=== PATIENT | male | born 1955 | race Caucasian/White ===

== ENCOUNTER 2017-06-26 19:28 | Inpatient (IN) | payer OTHER ==
[~2017-06-26] VITALS: Ht 175.3 cm; Wt 86.2 kg
[2017-06-26 20:09] LABS: Basophils # (auto) 0 uL; Basophils % (auto) 0.5 % (0.0-2.0); CONDITION Y; Eosinophils # (auto) 0.2 uL; Eosinophils % (auto) 2.2 % (0.0-7.0); Hematocrit 36.5 % (41.0-53.0); Hemoglobin 12.5 g/dL (13.5-17.5); Lymphocytes % (auto) 28.9 % (10.0-50.0); Mean Corpuscular Hemoglobin 32.6 pg (28.0-32.0); Mean Corpuscular Hgb Conc. 34.3 g/dL (32.0-36.0); Mean Corpuscular Volume 95.2 fL (80.0-100.0); Mean Platelet Volume 8.6 fL (7.4-10.4); Monocytes # (auto) 0.7 uL; Monocytes % (auto) 9.7 % (0.0-12.0); Neutrophils # (auto) 4.1 uL; Neutrophils % (auto) 58.7 % (37.0-80.0); Platelet Count (auto) 212 10^3/uL (140-450); Red Cell Distribution Width 14.2 % (11.6-16.0); White Blood Cell 6.9 10^3/uL (4.4-10.8)
[2017-06-26] MEDS ORDERED: SODIUM CHLORIDE 0.9% 1,000 ML IVB ONE (20:20)
[2017-06-26 20:45] LABS: Albumin 3.1 g/dL (3.4-5.0); Bilirubin, Total 0.3 mg/dL (0.2-1.0); Calcium 7.7 mg/dL (8.5-10.1); Magnesium 2.2 mg/dL (1.6-2.6); Potassium 3.5 mmol/L (3.5-5.1); Total Protein 5.9 g/dL (6.4-8.2)
[2017-06-26] MEDS ORDERED: SODIUM CHLORIDE 0.9% 500 ML IV ONE (21:00)
[2017-06-26 21:10] LABS: Urine Bilirubin Negative (Negative); Urine Blood Negative /uL (Negative); Urine Color Yellow (Yellow); Urine Glucose Normal (Normal); Urine Hyaline Cast MANY /lpf (0 - 2); Urine Ketone TRACE (Negative); Urine Mucus FEW (None Seen); Urine Nitrite Negative (Negative); Urine RBC <1 /hpf (0 - 3); Urine Urobilinogen Normal (Negative)
[2017-06-26 21:36] LABS: B-Type Natriuretic Peptide 170.99 pg/mL (0-100)
[2017-06-26 21:52] LABS: Temperature: 23.3 C (20.0-25.0)
[2017-06-26] MEDS ORDERED: LACTULOSE 20Gm/30ML SOLN PO PRN (22:30)
[2017-06-26] MEDS ORDERED: NITROGLYCERIN 0.4 MG SL TAB SL PRN (22:30)
[2017-06-26] MEDS ORDERED: MORPHINE SULF INJ 2 MG/ML SYRINGE 1ML IV PRN (22:30)
[2017-06-26] MEDS ORDERED: POTASSIUM CHL 20 Meq TABLET PO ONE (22:45)
[2017-06-26] MEDS ORDERED: FUROSEMIDE 20 MG/2 ML VIAL IV ONE (22:45)
[2017-06-26 23:11] LABS: Cholesterol 146 mg/dL (< 200); HDL Cholesterol 45 mg/dL (40-59); LDL Cholesterol 82 mg/dL (< 100); Triglycerides 342 mg/dL (< 150)
[2017-06-26] MEDS ORDERED: ACETAMINOPHEN 650 mg PER 20 mL UD PO PRN (23:15)
[2017-06-26] MEDS ORDERED: ACETAMINOPHEN 325 MG TAB PO ONE (23:18)
[2017-06-27] MEDS ORDERED: METO10TA3 PO (00:19)
[2017-06-27] MEDS ORDERED: ASCO500T11 PO (00:19)
[2017-06-27] MEDS ORDERED: FURO40TA4 PO (00:19)
[2017-06-27] MEDS ORDERED: MULT-228 PO (00:19)
[2017-06-27] MEDS ORDERED: ATOR20TA50 PO (00:19)
[2017-06-27] MEDS ORDERED: LOSA100T27 PO (00:19)
[2017-06-27] MEDS ORDERED: ASP81EC PO (00:19)
[2017-06-27] MEDS ORDERED: CARV6.2551 PO (00:19)
[2017-06-27 05:00] VITALS: BP 107/52
[2017-06-27 06:07] LABS: Basophils # (auto) 0.1 uL; Basophils % (auto) 0.8 % (0.0-2.0); CONDITION Y; Eosinophils # (auto) 0.2 uL; Eosinophils % (auto) 2.5 % (0.0-7.0); Hematocrit 38.4 % (41.0-53.0); Hemoglobin 12.8 g/dL (13.5-17.5); Lymphocytes # (auto) 2.4 uL; Lymphocytes % (auto) 34.5 % (10.0-50.0); Mean Corpuscular Hemoglobin 31.9 pg (28.0-32.0); Mean Corpuscular Hgb Conc. 33.2 g/dL (32.0-36.0); Mean Platelet Volume 9.2 fL (7.4-10.4); Monocytes # (auto) 0.7 uL; Monocytes % (auto) 9.6 % (0.0-12.0); Neutrophils # (auto) 3.7 uL; Neutrophils % (auto) 52.6 % (37.0-80.0); Platelet Count (auto) 207 10^3/uL (140-450); Red Cell Distribution Width 14.3 % (11.6-16.0)
[2017-06-27 06:44] LABS: BUN/Creatinine Ratio 25.5; Calcium 7.9 mg/dL (8.5-10.1); Potassium 4.2 mmol/L (3.5-5.1)
[2017-06-27 09:00] VITALS: BP 120/74
[2017-06-27] MEDS ORDERED: LOSARTAN POTASSIUM 50 MG TAB PO SCH (10:00)
[2017-06-27] MEDS ORDERED: ASPirin-EC 81 mg tab PO SCH (10:00)
[2017-06-27] MEDS ORDERED: FUROSEMIDE 20 MG TAB PO SCH (10:00)
[2017-06-27] MEDS ORDERED: METOPROLOL TARTRATE 25 MG TAB PO SCH (10:00)
[2017-06-27] MEDS ORDERED: CARVEDILOL 3.125 MG TAB PO SCH (10:00)
[2017-06-27 13:00] VITALS: BP 96/65
[2017-06-27] MEDS ORDERED: HYDROcodone-ACET 5/325MG TAB PO ONE (13:45)
[2017-06-27 14:05] VITALS: BP 96/65
[2017-06-27] MEDS ORDERED: ATORVASTATIN 20 MG TAB PO SCH (22:00)
== END 2017-06-27 16:15 | disposition home health service (06) | DRG 313 ==
LOC: EDBD 19:28 → ER 19:39 → TELE 19:40 → TELE-WESTW 23:31
PROVIDERS: ADMIT Nurse Practitioner Family; ATTEND Internal Medicine
DX: R07.9 Chest pain, unspecified (principal); I25.2 Old myocardial infarction; I42.9 Cardiomyopathy, unspecified; I50.22 Chronic systolic (congestive) heart failure; I11.0 Hypertensive heart disease with heart failure; D64.9 Anemia, unspecified; E78.00 Pure hypercholesterolemia, unspecified; E78.5 Hyperlipidemia, unspecified; I25.10 Atherosclerotic heart disease of native coronary artery without angina pectoris; Z82.49 Family history of ischemic heart disease and other diseases of the circulatory system; Z87.891 Personal history of nicotine dependence; Z95.1 Presence of aortocoronary bypass graft; Z95.810 Presence of automatic (implantable) cardiac defibrillator; Z80.9 Family history of malignant neoplasm, unspecified
CPT/HCPCS: 36415; 71010; 80048; 80053; 80061; 81001; 82550; 83735; 83880; 84484; 85025; 85652; 86141; 93005; 93306; 96360; 96361; 99291

== ENCOUNTER → 2018-03-01 | Outpatient (CLI) | payer OTHER, MEDICAID ==
[~2018-03-01] VITALS: Ht 175.3 cm; Wt 86.2 kg
[~2018-03-01] MED LIST: ADENOSINE 72 MG in GIVE UN-DILUTED 0 ML IV ONE; ADENOSINE 90 MG/30 ML INJ IV ONE; ASCO500T11 PO; ASP81EC PO; ATOR20TA50 PO; CARV6.2551 PO; FURO40TA4 PO; LOSA100T27 PO; METO10TA3 PO; MULT-228 PO
== END | disposition home or self-care (01) ==
LOC: Rad HDHVI 13:09
PROVIDERS: ATTEND Internal Medicine Cardiovascular Disease
DX: I25.5 Ischemic cardiomyopathy (principal); I11.0 Hypertensive heart disease with heart failure; I50.23 Acute on chronic systolic (congestive) heart failure; I25.2 Old myocardial infarction; E78.5 Hyperlipidemia, unspecified; E78.00 Pure hypercholesterolemia, unspecified; Z87.891 Personal history of nicotine dependence
CPT/HCPCS: 78452; 93005; 96374; 96375; A9500; J0153

== ENCOUNTER → 2018-03-11 | Outpatient (CLI) | payer OTHER ==
[~2018-03-11] MED LIST changes: -ADENOSINE 72 MG in GIVE UN-DILUTED 0 ML IV ONE; -ADENOSINE 90 MG/30 ML INJ IV ONE
[2018-03-11 09:30] VITALS: BP 124/64
[2018-03-11 10:30] VITALS: BP 106/74
[2018-03-11 12:27] LABS: Basophils # (auto) 0 uL; Basophils % (auto) 0.5 % (0.0-2.0); Eosinophils # (auto) 0.2 uL; Eosinophils % (auto) 2.7 % (0.0-7.0); Hematocrit 40.4 % (41.0-53.0); Hemoglobin 13.5 g/dL (13.5-17.5); Lymphocytes # (auto) 1.8 uL; Lymphocytes % (auto) 24.2 % (10.0-50.0); Mean Corpuscular Hemoglobin 32.1 pg (28.0-32.0); Mean Corpuscular Hgb Conc. 33.3 g/dL (32.0-36.0); Mean Corpuscular Volume 96.2 fL (80.0-100.0); Monocytes # (auto) 0.5 uL; Monocytes % (auto) 6.2 % (0.0-12.0); Neutrophils % (auto) 66.4 % (37.0-80.0); Nucleated Red Blood Cells % 0.1 %; Platelet Count (auto) 213 10^3/uL (140-450); White Blood Cell 7.5 10^3/uL (4.4-10.8)
[2018-03-11 12:36] LABS: Albumin 3.7 g/dL (3.4-5.0); BUN/Creatinine Ratio 31.6; Bilirubin, Total 0.6 mg/dL (0.2-1.0); Calcium 8.8 mg/dL (8.5-10.1); Total Protein 7.4 g/dL (6.4-8.2)
[2018-03-11 12:46] LABS: Hepatitis B Surface Antibody Negative
[2018-03-11 13:23] LABS: Hepatitis A Total Antibody Negative
[2018-03-11 13:44] LABS: Hepatitis B Core Total AB Negative
[2018-03-11 13:45] LABS: Hepatitis B Surface Antigen Negative (Negative); Hepatitis C Antibody Negative (Negative)
== END | disposition home or self-care (01) ==
LOC: CHF HDHVI 09:06
PROVIDERS: ATTEND Internal Medicine Cardiovascular Disease
DX: I10 Essential (primary) hypertension (principal); I50.23 Acute on chronic systolic (congestive) heart failure; D64.9 Anemia, unspecified; E78.5 Hyperlipidemia, unspecified; Z94.1 Heart transplant status; Z87.891 Personal history of nicotine dependence
CPT/HCPCS: 36415; 80053; 82306; 82607; 83880; 85025; 86703; 86704; 86706; 86708; 86803; 86850; 86900; 86901; 87340; 93005; 93701; 94618; G0463

== ENCOUNTER → 2018-03-12 | Outpatient (CLI) | payer OTHER ==
[2018-03-12 18:22] LABS: Protein, Urine 8.6 mg/dL (0.0-11.9)
[2018-03-12 18:24] LABS: 24 Hr. Total Protein, Urine 163.4 mg/24 Hr (<149.1)
== END | disposition home or self-care (01) ==
LOC: LAB 13:08
PROVIDERS: ATTEND Internal Medicine Cardiovascular Disease
DX: I11.0 Hypertensive heart disease with heart failure (principal); I50.23 Acute on chronic systolic (congestive) heart failure; E78.5 Hyperlipidemia, unspecified; E78.00 Pure hypercholesterolemia, unspecified; Z94.1 Heart transplant status; Z87.891 Personal history of nicotine dependence
CPT/HCPCS: 84156

== ENCOUNTER → 2018-03-25 | Outpatient (CLI) | payer OTHER ==
[~2018-03-25] MED LIST changes: +CYANOCOBALAMIN (B-12) 1000 MCG/1 ML VIAL IM ONE; +CYANOCOBALAMIN (B-12) 1000 MCG/1 ML VIAL ONE
[2018-03-25 09:15] VITALS: BP 88/64
[2018-03-25 10:15] VITALS: BP 115/86
[2018-03-25 12:11] LABS: BUN/Creatinine Ratio 42.3; Calcium 9.6 mg/dL (8.5-10.1); Magnesium 3.1 mg/dL (1.6-2.6); Potassium 4.1 mmol/L (3.5-5.1)
== END | disposition home or self-care (01) ==
LOC: CHF HDHVI 09:22
PROVIDERS: ATTEND Internal Medicine Cardiovascular Disease
DX: I11.0 Hypertensive heart disease with heart failure (principal); I50.23 Acute on chronic systolic (congestive) heart failure; I27.21 Secondary pulmonary arterial hypertension; R53.83 Other fatigue; I25.10 Atherosclerotic heart disease of native coronary artery without angina pectoris; I25.2 Old myocardial infarction; Z87.891 Personal history of nicotine dependence; Z79.899 Other long term (current) drug therapy
CPT/HCPCS: 36415; 80048; 83735; 83880; 93701; 96372; G0463; J3420

== ENCOUNTER → 2018-03-30 | Outpatient (CLI) | payer OTHER ==
[~2018-03-30] MED LIST changes: -CYANOCOBALAMIN (B-12) 1000 MCG/1 ML VIAL IM ONE; -CYANOCOBALAMIN (B-12) 1000 MCG/1 ML VIAL ONE
[2018-03-30 08:25] VITALS: BP 91/62
[2018-03-30 09:30] VITALS: BP 98/68
[2018-03-30 12:04] LABS: Basophils # (auto) 0.1 uL; Basophils % (auto) 0.7 % (0.0-2.0); Eosinophils # (auto) 0.2 uL; Eosinophils % (auto) 2.6 % (0.0-7.0); Hematocrit 39.7 % (41.0-53.0); Hemoglobin 13.3 g/dL (13.5-17.5); Lymphocytes # (auto) 1.6 uL; Lymphocytes % (auto) 22.4 % (10.0-50.0); Mean Corpuscular Hemoglobin 31.8 pg (28.0-32.0); Mean Corpuscular Hgb Conc. 33.5 g/dL (32.0-36.0); Mean Corpuscular Volume 95.1 fL (80.0-100.0); Monocytes # (auto) 0.5 uL; Monocytes % (auto) 6.6 % (0.0-12.0); Neutrophils # (auto) 4.8 uL; Neutrophils % (auto) 67.7 % (37.0-80.0); Nucleated Red Blood Cells % 0.2 %; Platelet Count (auto) 203 10^3/uL (140-450); Red Blood Cells 4.17 10^6/uL (4.5-5.90); Red Cell Distribution Width 13.1 % (11.8-14.3)
[2018-03-30 12:16] LABS: INR 0.99 (0.9-1.15); Partial Thromboplastin Time 30.6 sec (23.78-33.04); Prothrombin Time 10.6 sec (9.27-12.13)
[2018-03-30 12:25] LABS: BUN/Creatinine Ratio 31.5; Calcium 8.6 mg/dL (8.5-10.1)
== END | disposition home or self-care (01) ==
LOC: Rad HDHVI 08:03
PROVIDERS: ATTEND Internal Medicine Cardiovascular Disease
DX: Z01.818 Encounter for other preprocedural examination (principal); I25.10 Atherosclerotic heart disease of native coronary artery without angina pectoris; I11.0 Hypertensive heart disease with heart failure; E78.5 Hyperlipidemia, unspecified; E78.00 Pure hypercholesterolemia, unspecified; I50.23 Acute on chronic systolic (congestive) heart failure; Z79.899 Other long term (current) drug therapy
CPT/HCPCS: 36415; 71046; 80048; 85025; 85610; 85730; 93005; G0463

== ENCOUNTER 2018-04-01 10:16 | Inpatient (IN) | payer OTHER ==
[~2018-04-01] VITALS: Ht 175.3 cm; Wt 92.4 kg
[2018-04-01] MEDS ORDERED: IOHEXOL 350 MG/ML 100ML IJ ONE ×2 (10:59→13:19)
[2018-04-01] MEDS ORDERED: LIDOCAINE 2%HCL (LOCAL ANESTH.) INJ 20ML MDV ONE (10:59)
[2018-04-01] MEDS ORDERED: ceFAZolin 1GM/100ML 50 ML IV ONE (12:00)
[2018-04-01] MEDS ORDERED: fentaNYL CITRATE 100 MCG/2 ML VL ONE (13:11)
[2018-04-01] MEDS ORDERED: VANCOMYCIN HCL 1000 MG VL ONE (13:11)
[2018-04-01] MEDS ORDERED: MIDAZOLAM HCL 1MG/1ML-2 ML VIAL ONE (13:11)
[2018-04-01] MEDS ORDERED: diphenhdrAMINE HCL 50 MG/1 ML VL ONE (13:39)
[2018-04-01] MEDS ORDERED: VANCOMYCIN 1GM/250ML 250 ML IV ONE (13:44)
[2018-04-01] MEDS ORDERED: ceFAZolin 1GM VL ONE (14:02)
[2018-04-01] MEDS ORDERED: MORPHINE SULF INJ 2 MG/ML SYRINGE 1ML IV PRN (15:00)
[2018-04-01] MEDS ORDERED: LORazepam 0.5 MG TAB PO PRN (15:00)
[2018-04-01] MEDS ORDERED: NITROGLYCERIN 0.4 MG SL TAB SL PRN (15:00)
[2018-04-01] MEDS ORDERED: ONDANSETRON HCL 4 MG/2 ML VIAL IV PRN (15:00)
[2018-04-01] MEDS ORDERED: ACETAMINOPHEN 325 MG TAB PO PRN (15:00)
[2018-04-01 17:00] VITALS: BP 133/94
[2018-04-01] MEDS: HYDROcodone-ACET 10/325MG TAB PO PRN (20:32)
[2018-04-01] MEDS: CARVEDILOL 3.125 MG TAB PO SCH (21:40)
[2018-04-01 22:00] VITALS: BP 101/66
[2018-04-01] MEDS ORDERED: VANCOMYCIN 1GM/250ML 250 ML IV SCH (22:00)
[2018-04-02] MEDS: HYDROcodone-ACET 10/325MG TAB PO PRN (00:30)
[2018-04-02] MEDS ORDERED: VANCOMYCIN 1GM/250ML 250 ML IV SCH (02:00)
[2018-04-02 05:00] VITALS: BP 99/67
[2018-04-02 08:00] VITALS: BP 100/60
[2018-04-02] MEDS ORDERED: ATORVASTATIN 20 MG TAB PO SCH (10:00)
[2018-04-02] MEDS ORDERED: FUROSEMIDE 40 MG TAB PO SCH (10:00)
[2018-04-02] MEDS ORDERED: MULTIPLE VITAMIN TAB PO SCH (10:00)
[2018-04-02] MEDS ORDERED: ASCORBIC ACID 500 MG TAB PO SCH (10:00)
[2018-04-02] MEDS ORDERED: LOSARTAN POTASSIUM 50 MG TAB PO SCH (10:00)
[2018-04-02] MEDS: CARVEDILOL 3.125 MG TAB PO SCH (10:00)
[2018-04-02 12:00] VITALS: BP 93/62
== END 2018-04-02 14:00 | disposition left against medical advice (07) | DRG 226 ==
LOC: CATH 10:16 → TELE-WESTW 10:17
PROVIDERS: ADMIT Internal Medicine Cardiovascular Disease; ATTEND Internal Medicine Cardiovascular Disease
PROC: 02HL3KZ Insertion of Defibrillator Lead into Left Ventricle, Percutaneous Approach (ICD-10-PCS; principal; 2018-04-01)
PROC: 0JH609Z Insertion of Cardiac Resynchronization Defibrillator Pulse Generator into Chest Subcutaneous Tissue and Fascia, Open Approach (ICD-10-PCS; 2018-04-01)
PROC: 0JPT0PZ Removal of Cardiac Rhythm Related Device from Trunk Subcutaneous Tissue and Fascia, Open Approach (ICD-10-PCS; 2018-04-01)
DX: I25.5 Ischemic cardiomyopathy (principal); I50.23 Acute on chronic systolic (congestive) heart failure; I25.10 Atherosclerotic heart disease of native coronary artery without angina pectoris; Z53.21 Procedure and treatment not carried out due to patient leaving prior to being seen by health care provider; Z95.1 Presence of aortocoronary bypass graft; Z95.810 Presence of automatic (implantable) cardiac defibrillator
CPT/HCPCS: 33249; 71045; 93005; 99152; 99153; J0690; J2250

== ENCOUNTER → 2018-04-12 | Outpatient (CLI) | payer OTHER ==
[2018-04-12 08:30] VITALS: BP 140/95
[2018-04-12 09:00] VITALS: BP 136/89
== END | disposition home or self-care (01) ==
LOC: CHF HDHVI 08:43
PROVIDERS: ATTEND Internal Medicine Cardiovascular Disease
DX: I10 Essential (primary) hypertension (principal); I25.10 Atherosclerotic heart disease of native coronary artery without angina pectoris; E78.5 Hyperlipidemia, unspecified; E78.00 Pure hypercholesterolemia, unspecified; Z79.899 Other long term (current) drug therapy
CPT/HCPCS: G0463

== ENCOUNTER → 2018-08-06 | Outpatient (CLI) | payer OTHER ==
[~2018-08-06] MED LIST changes: +LOSA-49 PO; -LOSA100T27 PO
== END | disposition home or self-care (01) ==
LOC: Rad HDHVI 14:29
PROVIDERS: ATTEND Internal Medicine Cardiovascular Disease
DX: I34.0 Nonrheumatic mitral (valve) insufficiency (principal); I11.0 Hypertensive heart disease with heart failure; I50.23 Acute on chronic systolic (congestive) heart failure; I42.0 Dilated cardiomyopathy
CPT/HCPCS: 93306

== ENCOUNTER → 2018-08-17 | Outpatient (CLI) | payer OTHER ==
[~2018-08-17] MED LIST changes: +IOHEXOL 350 MG/ML 100ML IJ ONE
[2018-08-17 09:00] VITALS: BP 135/82
[2018-08-17 09:20] VITALS: BP 140/76
== END | disposition home or self-care (01) ==
LOC: Rad HDHVI 08:54
PROVIDERS: ATTEND Internal Medicine Cardiovascular Disease
DX: I51.7 Cardiomegaly (principal); I70.8 Atherosclerosis of other arteries
CPT/HCPCS: 71275; 82565; G0463; Q9967

== ENCOUNTER → 2018-10-05 | Outpatient (CLI) | payer OTHER ==
[~2018-10-05] VITALS: Ht 175.3 cm; Wt 77.1 kg
[~2018-10-05] MED LIST changes: +ADENOSINE 65 MG in GIVE UN-DILUTED 0 ML IV ONE; +ADENOSINE 90 MG/30 ML INJ IV ONE; -IOHEXOL 350 MG/ML 100ML IJ ONE
== END | disposition home or self-care (01) ==
LOC: Rad HDHVI 08:15
PROVIDERS: ATTEND Internal Medicine Cardiovascular Disease
DX: I20.0 Unstable angina (principal); I25.5 Ischemic cardiomyopathy; I11.0 Hypertensive heart disease with heart failure; I50.23 Acute on chronic systolic (congestive) heart failure; I26.99 Other pulmonary embolism without acute cor pulmonale; E11.9 Type 2 diabetes mellitus without complications
CPT/HCPCS: 78452; 93005; 96374; 96375; A9500; J0153

== ENCOUNTER 2021-04-19 06:27 | Day surgery (SDC) | payer OTHER ==
[~2021-04-19] VITALS: Ht 175.3 cm; Wt 86.2 kg
[~2021-04-19 06:27] MED LIST changes: -ADENOSINE 65 MG in GIVE UN-DILUTED 0 ML IV ONE; -ADENOSINE 90 MG/30 ML INJ IV ONE; +AMIO200T33 PO; -ASP81EC PO; +ASPI-394 PO; -ATOR20TA50 PO; +ATOR80TA PO; +CLOP75TA28 PO; +DIGO1TAB37 PO; -FURO40TA4 PO; +ISOS20TA5 PO; -LOSA-49 PO; -METO10TA3 PO; -MULT-228 PO; +ONDA-144 PO; +SACU1TAB PO
[2021-04-19] MEDS ORDERED: IODIXANOL 320MG/ML 100ML BTL IV ONE (07:18)
[2021-04-19] MEDS ORDERED: LIDOCAINE 2%HCL (LOCAL ANESTH.) INJ 20ML MDV ONE (07:18)
[2021-04-19] MEDS ORDERED: fentaNYL CITRATE 100 MCG/2 ML VL ONE (07:43)
[2021-04-19] MEDS ORDERED: SODIUM CHL 0.9% 0 ML ONE (07:43)
[2021-04-19] MEDS ORDERED: VERAPAMIL 2.5MG/ML INJ 2ML VIAL IV ONE (07:43)
[2021-04-19] MEDS ORDERED: MIDAZOLAM HCL 1MG/1ML-2 ML VIAL ONE (07:43)
[2021-04-19] MEDS ORDERED: ANGIOMAX 250 MG VIAL IV ONE (07:43)
[2021-04-19] MEDS ORDERED: HEPARIN SODIUM (PORCINE) 5000 UNITS/ML 1ML VIAL ONE (07:43)
== END 2021-04-19 11:11 | disposition home or self-care (01) ==
LOC: CATH 06:27
PROVIDERS: ATTEND Internal Medicine Cardiovascular Disease
DX: R94.39 Abnormal result of other cardiovascular function study (principal); I25.810 Atherosclerosis of coronary artery bypass graft(s) without angina pectoris; E78.5 Hyperlipidemia, unspecified; I11.0 Hypertensive heart disease with heart failure; Z95.1 Presence of aortocoronary bypass graft; Z20.822 Contact with and (suspected) exposure to COVID-19; Z79.82 Long term (current) use of aspirin; Z79.899 Other long term (current) drug therapy
CPT/HCPCS: 93459; C1769; C1894; J1644; J2250; J3010; J7030; Q9967; U0003; 99152; 99153

== ENCOUNTER → 2023-11-19 | Outpatient (CLI) | payer MEDICAID ==
[2023-11-19 09:24] LABS: Urine Epithelial Cast None Seen /hpf (<5)
[2023-11-19 09:28] LABS: Basophils # (auto) 0.1 10 ^3/uL (0-0.2); Eosinophils # (auto) 0.4 10 ^3/uL (0-0.8); Eosinophils % (auto) 4.9 % (0.0-7.0); Hemoglobin 16.7 g/dL (13.5-17.5); Lymphocytes # (auto) 1.2 10 ^3/uL (0.4-5.4); Lymphocytes % (auto) 14.8 % (10.0-50.0); Mean Corpuscular Hemoglobin 32.4 pg (28.0-32.0); Mean Corpuscular Hgb Conc. 33.4 g/dL (32.0-36.0); Mean Corpuscular Volume 96.9 fL (80.0-100.0); Monocytes # (auto) 0.5 10 ^3/uL (0-1.3); Monocytes % (auto) 6.8 % (0.0-12.0); Neutrophils # (auto) 5.6 10 ^3/uL (1.6-8.6); Neutrophils % (auto) 72.5 % (37.0-80.0); Red Blood Cells 5.16 10^6/uL (4.5-5.90); White Blood Cell 7.8 10^3/uL (4.4-10.8)
[2023-11-19 09:47] LABS: Urine Bacteria NONE SEEN /hpf (None Seen); Urine Blood Negative /uL (Negative); Urine Clarity Clear (Clear); Urine Color Yellow (Yellow); Urine Mucus FEW (None Seen); Urine Protein, UAD 1+ (Negative); Urine Urobilinogen Normal (Negative); Urine WBC 2 /hpf (0 - 3); Urine pH 5.5 (5.0-8.0)
[2023-11-19 10:15] LABS: Alanine Aminotransferase 36 U/L (7-40); Albumin 4.5 g/dL (3.2-4.8); Alkaline Phosphatase 69 U/L (46-116); Anion Gap 9 (5-15); Aspartate Aminotransferase 25 U/L (13-40); Bilirubin, Total 0.9 mg/dL (0.2-1.0); Blood Urea Nitrogen 11 mg/dL (9-23); Calcium 9.5 mg/dL (8.5-10.1); Carbon Dioxide 22 mmol/L (20-30); Chloride 110 mmol/L (98-107); Cholesterol 145 mg/dL (< 200); Glucose 134 mg/dL (74-106); HDL Cholesterol 57 mg/dL (40-59); LDL Cholesterol 70 mg/dL (< 100); Sodium 141 mmol/L (136-145); Total Protein 7.3 g/dL (5.7-8.2); Triglycerides 94 mg/dL (< 150)
[2023-11-19 10:24] LABS: Uric Acid 3.1 mg/dL (3.7-9.2)
[2023-11-19 10:25] LABS: Magnesium 2.2 mg/dL (1.6-2.6)
[2023-11-19 14:33] LABS: Prostate Specific Antigen 0.88 ng/mL (0.0-4.0)
[2023-11-19 14:39] LABS: Folate (Folic Acid) 21.12 ng/mL (>5.38)
== END | disposition home or self-care (01) ==
LOC: LAB 09:12
PROVIDERS: ATTEND Internal Medicine
DX: E61.2 Magnesium deficiency (principal); E79.0 Hyperuricemia without signs of inflammatory arthritis and tophaceous disease; R94.6 Abnormal results of thyroid function studies; R82.79 Other abnormal findings on microbiological examination of urine; E55.9 Vitamin D deficiency, unspecified; D51.9 Vitamin B12 deficiency anemia, unspecified; R82.998 Other abnormal findings in urine; R78.89 Finding of other specified substances, not normally found in blood; E78.49 Other hyperlipidemia; R68.89 Other general symptoms and signs; R73.09 Other abnormal glucose
CPT/HCPCS: 36415; 80053; 80061; 81001; 82306; 82607; 82746; 83036; 83735; 84153; 84443; 84550; 85025; 87086

== ENCOUNTER 2023-12-23 07:11 | Inpatient (IN) | payer MEDICAID ==
[~2023-12-23] VITALS: Ht 170.2 cm; Wt 90.9 kg
[2023-12-23] VITALS (13 sets, daily range): BP systolic 112–147; BP diastolic 59–84; PULSE 64–78; RESP 16–22; TEMP 97.1–98.8; O2SAT 94–97
[~2023-12-23 07:11] MED LIST changes: -ATOR-47 PO; -CARV12.544 PO; -DIGO0.12 PO; -IOHEXOL 350 MG/ML 100ML IJ ONE; -ISO60SRT PO; -MIDAZOLAM HCL 2MG/2ML 2ml VIAL (1mg/ml) ONE; -SODIUM CHLORIDE 0.9% 1,000 ML IV SCH; -VANCOMYCIN 1GM/200ML 0 ML IV ONE; -VANCOMYCIN HCL 1000 MG VL ONE; -fentaNYL CITRATE 100 MCG/2 ML VL ONE
[2023-12-23 07:42] LABS: Basophils # (auto) 0.1 10 ^3/uL (0-0.2); Basophils % (auto) 0.6 % (0.0-2.0); Eosinophils # (auto) 0.5 10 ^3/uL (0-0.8); Eosinophils % (auto) 4.8 % (0.0-7.0); Hematocrit 50.9 % (41.0-53.0); Hemoglobin 16.5 g/dL (13.5-17.5); Lymphocytes # (auto) 1.2 10 ^3/uL (0.4-5.4); Lymphocytes % (auto) 12.5 % (10.0-50.0); Mean Corpuscular Hemoglobin 31.5 pg (28.0-32.0); Mean Corpuscular Hgb Conc. 32.4 g/dL (32.0-36.0); Mean Corpuscular Volume 97.2 fL (80.0-100.0); Monocytes # (auto) 0.6 10 ^3/uL (0-1.3); Monocytes % (auto) 5.8 % (0.0-12.0); Neutrophils # (auto) 7.3 10 ^3/uL (1.6-8.6); Neutrophils % (auto) 76.3 % (37.0-80.0); Red Blood Cells 5.24 10^6/uL (4.5-5.90); Red Cell Distribution Width 15.2 % (11.8-14.3); White Blood Cell 9.6 10^3/uL (4.4-10.8)
[2023-12-23 07:52] LABS: Alanine Aminotransferase 34 U/L (7-40); Albumin 4.4 g/dL (3.2-4.8); Alkaline Phosphatase 64 U/L (46-116); Anion Gap 8 (5-15); Aspartate Aminotransferase 26 U/L (13-40); BUN/Creatinine Ratio 17.9 (10.0-20.0); Blood Urea Nitrogen 17 mg/dL (9-23); Calcium 9.3 mg/dL (8.7-10.4); Carbon Dioxide 25 mmol/L (20-30); Chloride 110 mmol/L (98-107); Glucose 129 mg/dL (74-106); Magnesium 1.9 mg/dL (1.6-2.6); Potassium 4.4 mmol/L (3.5-5.1); Sodium 143 mmol/L (136-145)
[2023-12-23 07:53] LABS: Bilirubin, Total 1.1 mg/dL (0.2-1.0); Total Protein 6.8 g/dL (5.7-8.2)
[2023-12-23] MEDS ORDERED: SODIUM CHLORIDE 0.9% 1,000 ML IV SCH (09:00)
[2023-12-23] MEDS ORDERED: ATOR-47 PO (09:02)
[2023-12-23] MEDS ORDERED: DIGO0.12 PO (09:02)
[2023-12-23] MEDS ORDERED: ISO60SRT PO (09:02)
[2023-12-23] MEDS ORDERED: CARV12.544 PO (09:02)
[2023-12-23] MEDS ORDERED: IPRATROPIUM BROM 0.5 MG/2.5ML INH SOL NEB PRN (09:15)
[2023-12-23] MEDS ORDERED: ALBUTEROL SULF 2.5 MG/0.5ML(0.5%) NEB SOLN NEB PRN (09:15)
[2023-12-23] MEDS ORDERED: MORPHINE SULFATE INJ 2 MG/ml SYRG IV PRN ×2 (09:15)
[2023-12-23] MEDS ORDERED: NITROGLYCERIN 0.4 MG SL TAB SL PRN (09:15)
[2023-12-23] MEDS ORDERED: DOCUSATE SOD 100 MG CAP PO PRN (09:15)
[2023-12-23 09:34] LABS: INR 1.09 (0.9-1.15); Partial Thromboplastin Time 31.5 SEC (24.5-34.5); Prothrombin Time 11.4 sec (9.3-11.8)
[2023-12-23] MEDS: [UNRECOGNIZED DRUG - OTHER] PO SCH (10:00)
[2023-12-23] MEDS: VALSARTAN PO SCH (10:00)
[2023-12-23] MEDS: ASCORBIC ACID 500 MG TAB PO SCH (10:00)
[2023-12-23] MEDS: SACUBITRIL PO SCH (10:00)
[2023-12-23] MEDS: CARVEDILOL 12.5 MG TAB PO SCH (10:00)
[2023-12-23] MEDS: DIGOXIN 0.125 MG TAB PO SCH (13:32)
[2023-12-23] MEDS: ISOSORBIDE MONONITRATE ER 60 MG TAB PO SCH (13:32)
[2023-12-23] MEDS: SODIUM CHLORIDE 0.9% 1,000 ML IV SCH (13:33)
[2023-12-23] MEDS: ONDANSETRON HCL 4 MG/2 ML VIAL IV PRN (18:43)
[2023-12-23] MEDS: HYDROcodone-ACET 5/325MG TAB PO PRN (20:04)
[2023-12-23] MEDS: ATORVASTATIN 20 MG TAB PO SCH (21:33)
[2023-12-24] VITALS (12 sets, daily range): BP systolic 109–148; BP diastolic 64–94; PULSE 60–87; RESP 15–21; TEMP 97.5–98.4; O2SAT 92–97
[2023-12-24] MEDS: AMIODARONE HCL 200 MG TAB PO SCH (09:51)
[2023-12-24] MEDS: ACETAMINOPHEN 500 MG TAB PO PRN (14:25)
[2023-12-24] MEDS ORDERED: fentaNYL CITRATE 100 MCG/2 ML VL ONE (15:25)
[2023-12-24] MEDS ORDERED: MIDAZOLAM HCL 2MG/2ML 2ml VIAL (1mg/ml) ONE (15:25)
[2023-12-24] MEDS ORDERED: VANCOMYCIN HCL 1000 MG VL ONE ×2 (15:25→15:50)
[2023-12-24] MEDS ORDERED: VANCOMYCIN 1GM/200ML 200 ML IV ONE (15:26)
[2023-12-24] MEDS: VANCOMYCIN 1GM/200ML 200 ML IV SCH (22:01)
[2023-12-25 07:30] VITALS: PULSE 64
[2023-12-25 08:00] VITALS: BP 138/70; PULSE 98; RESP 18; TEMP 97.9
[2023-12-25 09:00] VITALS: BP 140/88; PULSE 67; RESP 18; TEMP 97.4; O2SAT 94
[2023-12-25] MEDS ORDERED: AMIO100T3 PO (10:44)
[2023-12-25] MEDS ORDERED: CHOL500023 PO (10:46)
[2023-12-25 12:58] VITALS: BP 140/88; PULSE 67; RESP 18; TEMP 36.3; O2SAT 95
[2023-12-25 13:00] VITALS: BP 145/91; PULSE 72; RESP 18; TEMP 98.1; O2SAT 94
== END 2023-12-25 13:30 | disposition home or self-care (01) | DRG 276 ==
LOC: ER 07:11 → TELE 09:11 → TELE-CENTR 13:00
PROVIDERS: ADMIT Nurse Practitioner Acute Care; ATTEND Nurse Practitioner Acute Care
PROC: 0JPT0PZ Removal of Cardiac Rhythm Related Device from Trunk Subcutaneous Tissue and Fascia, Open Approach (ICD-10-PCS; principal; 2023-12-24)
PROC: 02HK3KZ Insertion of Defibrillator Lead into Right Ventricle, Percutaneous Approach (ICD-10-PCS; 2023-12-24)
PROC: 0JH609Z Insertion of Cardiac Resynchronization Defibrillator Pulse Generator into Chest Subcutaneous Tissue and Fascia, Open Approach (ICD-10-PCS; 2023-12-24)
PROC: B517YZZ Fluoroscopy of Left Subclavian Vein using Other Contrast (ICD-10-PCS; 2023-12-24)
DX: T82.118A Breakdown (mechanical) of other cardiac electronic device, initial encounter (principal); I50.23 Acute on chronic systolic (congestive) heart failure; I25.10 Atherosclerotic heart disease of native coronary artery without angina pectoris; E66.9 Obesity, unspecified; Y71.2 Prosthetic and other implants, materials and accessory cardiovascular devices associated with adverse incidents; E78.5 Hyperlipidemia, unspecified; I25.5 Ischemic cardiomyopathy; I11.0 Hypertensive heart disease with heart failure; I05.0 Rheumatic mitral stenosis; I25.119 Atherosclerotic heart disease of native coronary artery with unspecified angina pectoris; K21.9 Gastro-esophageal reflux disease without esophagitis; Z95.2 Presence of prosthetic heart valve; Z87.891 Personal history of nicotine dependence; Z95.1 Presence of aortocoronary bypass graft; I25.2 Old myocardial infarction; Z82.49 Family history of ischemic heart disease and other diseases of the circulatory system; Z95.810 Presence of automatic (implantable) cardiac defibrillator; Z83.3 Family history of diabetes mellitus; Z68.31 Body mass index [BMI] 31.0-31.9, adult; Z80.1 Family history of malignant neoplasm of trachea, bronchus and lung
CPT/HCPCS: 33225; 33241; 33244; 33249; 36415; 71045; 80053; 83735; 83880; 84484; 85025; 85610; 85730; 93005; 94640; 99152; G0378; J2250; J2405

== ENCOUNTER → 2023-12-23 | Day surgery (SDC) | payer MEDICAID ==
[~2023-12-23] VITALS: Ht 175.3 cm; Wt 86.2 kg
[~2023-12-23] MED LIST changes: +ATOR-47 PO; +CARV12.544 PO; +CHOL20007 OR; +DIGO0.12 PO; +EMPA1TAB PO; +IOHEXOL 350 MG/ML 100ML IJ ONE; +ISO60SRT PO; -ISOS20TA5 PO; +ISOS60TA24 PO; +MIDAZOLAM HCL 2MG/2ML 2ml VIAL (1mg/ml) ONE; -ONDA-144 PO; -SACU1TAB PO; +SACU1TAB4 PO; +SODIUM CHLORIDE 0.9% 1,000 ML IV SCH; +VANCOMYCIN 1GM/200ML 0 ML IV ONE; +VANCOMYCIN HCL 1000 MG VL ONE; +fentaNYL CITRATE 100 MCG/2 ML VL ONE
== END | disposition home or self-care (01) ==
LOC: CATH 06:35
PROVIDERS: ATTEND Specialist
DX: T82.111A Breakdown (mechanical) of cardiac pulse generator (battery), initial encounter (principal); Z53.8 Procedure and treatment not carried out for other reasons; Y83.8 Other surgical procedures as the cause of abnormal reaction of the patient, or of later complication, without mention of misadventure at the time of the procedure; I50.9 Heart failure, unspecified
CPT/HCPCS: J3370; J7030; Q9967; J2250

== ENCOUNTER → 2024-04-05 | Outpatient (CLI) | payer MEDICAID ==
[~2024-04-05] MED LIST changes: +AMIO100T3 PO; -AMIO200T33 PO; +CARV12.544 PO; -CARV6.2551 PO; -CHOL20007 OR; +CHOL500023 PO; +DIGO0.12 PO; -DIGO1TAB37 PO; +ISO60SRT PO; -ISOS60TA24 PO
[2024-04-05 09:10] LABS: Anion Gap 4 (5-15); Carbon Dioxide 26 mmol/L (20-30); Chloride 110 mmol/L (98-107); Potassium 5.4 mmol/L (3.5-5.1); Sodium 140 mmol/L (136-145)
[2024-04-05 09:11] LABS: Calcium 9.9 mg/dL (8.5-10.1)
[2024-04-05 09:16] LABS: BUN/Creatinine Ratio 14.7 (10.0-20.0); Blood Urea Nitrogen 16 mg/dL (9-23); Glucose 139 mg/dL (74-106)
== END | disposition home or self-care (01) ==
LOC: LAB 08:42
PROVIDERS: ATTEND Specialist
DX: I10 Essential (primary) hypertension (principal)
CPT/HCPCS: 36415; 80048

== ENCOUNTER → 2024-07-14 | Outpatient (CLI) | payer MEDICAID ==
[2024-07-14 09:59] LABS: Basophils # (auto) 0.1 10 ^3/uL (0-0.2); Basophils % (auto) 0.8 % (0.0-2.0); Eosinophils # (auto) 0.3 10 ^3/uL (0-0.8); Eosinophils % (auto) 4.4 % (0.0-7.0); Hematocrit 49.2 % (41.0-53.0); Hemoglobin 16.7 g/dL (13.5-17.5); Lymphocytes # (auto) 1.4 10 ^3/uL (0.4-5.4); Lymphocytes % (auto) 18.3 % (10.0-50.0); Mean Corpuscular Hemoglobin 33.1 pg (28.0-32.0); Mean Corpuscular Hgb Conc. 33.9 g/dL (32.0-36.0); Mean Corpuscular Volume 97.7 fL (80.0-100.0); Monocytes # (auto) 0.6 10 ^3/uL (0-1.3); Monocytes % (auto) 7.8 % (0.0-12.0); Neutrophils # (auto) 5.3 10 ^3/uL (1.6-8.6); Neutrophils % (auto) 68.7 % (37.0-80.0); Nucleated Red Blood Cells % 0.3 %; Platelet Count (auto) 178 10^3/uL (140-450); Red Blood Cells 5.04 10^6/uL (4.5-5.90); Red Cell Distribution Width 15.2 % (11.8-14.3); White Blood Cell 7.8 10^3/uL (4.4-10.8)
[2024-07-14 10:12] LABS: Alanine Aminotransferase 22 U/L (7-40); Albumin 4.2 g/dL (3.2-4.8); Alkaline Phosphatase 64 U/L (46-116); Anion Gap 7 (5-15); Aspartate Aminotransferase 18 U/L (13-40); BUN/Creatinine Ratio 16.7 (10.0-20.0); Bilirubin, Total 0.7 mg/dL (0.2-1.0); Blood Urea Nitrogen 14 mg/dL (9-23); Calcium 9.5 mg/dL (8.7-10.4); Carbon Dioxide 26 mmol/L (20-30); Chloride 109 mmol/L (98-107); Cholesterol 143 mg/dL (< 200); Glucose 133 mg/dL (74-106); HDL Cholesterol 51 mg/dL (40-59); LDL Cholesterol 75 mg/dL (< 100); Sodium 142 mmol/L (136-145); Total Protein 6.7 g/dL (5.7-8.2); Triglycerides 102 mg/dL (< 150)
== END | disposition home or self-care (01) ==
LOC: LAB 09:00
PROVIDERS: ATTEND Specialist
DX: E11.9 Type 2 diabetes mellitus without complications (principal); D64.9 Anemia, unspecified; R68.89 Other general symptoms and signs; E78.5 Hyperlipidemia, unspecified; E03.9 Hypothyroidism, unspecified
CPT/HCPCS: 36415; 80053; 80061; 83036; 84443; 85025

== ENCOUNTER → 2024-08-17 | Outpatient (CLI) | payer MEDICAID ==
[2024-08-17 08:54] LABS: Chloride 109 mmol/L (98-107); Potassium 4.8 mmol/L (3.5-5.1); Sodium 139 mmol/L (136-145)
[2024-08-17 08:55] LABS: Anion Gap 6 (5-15); Calcium 9.7 mg/dL (8.7-10.4); Carbon Dioxide 24 mmol/L (20-31)
[2024-08-17 08:57] LABS: Creatinine, Urine 74.21 mg/dL (30.0-125.0)
[2024-08-17 09:00] LABS: BUN/Creatinine Ratio 16.7 (10.0-20.0); Blood Urea Nitrogen 16 mg/dL (9-23); Glucose 139 mg/dL (74-106)
== END | disposition home or self-care (01) ==
LOC: LAB 08:28
PROVIDERS: ATTEND Internal Medicine
DX: E11.9 Type 2 diabetes mellitus without complications (principal)
CPT/HCPCS: 36415; 80048; 82043; 82570

== ENCOUNTER → 2024-12-01 | Outpatient (CLI) | payer MEDICAID ==
[2024-12-01 08:57] LABS: Basophils # (auto) 0.1 10 ^3/uL (0-0.2); Basophils % (auto) 0.8 % (0.0-2.0); Eosinophils # (auto) 0.7 10 ^3/uL (0-0.8); Eosinophils % (auto) 8.2 % (0.0-7.0); Hematocrit 49.4 % (41.0-53.0); Hemoglobin 16.7 g/dL (13.5-17.5); Lymphocytes # (auto) 1.3 10 ^3/uL (0.4-5.4); Lymphocytes % (auto) 16.6 % (10.0-50.0); Mean Corpuscular Hemoglobin 32.8 pg (28.0-32.0); Mean Corpuscular Hgb Conc. 33.7 g/dL (32.0-36.0); Mean Corpuscular Volume 97.1 fL (80.0-100.0); Monocytes # (auto) 0.6 10 ^3/uL (0-1.3); Monocytes % (auto) 7.7 % (0.0-12.0); Neutrophils # (auto) 5.4 10 ^3/uL (1.6-8.6); Neutrophils % (auto) 66.7 % (37.0-80.0); Nucleated Red Blood Cells % 0.1 %; Platelet Count (auto) 193 10^3/uL (140-450); Red Blood Cells 5.08 10^6/uL (4.5-5.90); Red Cell Distribution Width 15.5 % (11.8-14.3)
[2024-12-01 09:36] LABS: Alanine Aminotransferase 29 U/L (7-40); Albumin 4.4 g/dL (3.2-4.8); Alkaline Phosphatase 64 U/L (46-116); Anion Gap 9 (5-15); Aspartate Aminotransferase 21 U/L (13-40); BUN/Creatinine Ratio 12.9 (10.0-20.0); Bilirubin, Direct 0.2 mg/dL (<0.3); Bilirubin, Total 0.7 mg/dL (0.2-1.0); Blood Urea Nitrogen 13 mg/dL (9-23); Carbon Dioxide 23 mmol/L (20-31); Cholesterol 150 mg/dL (< 200); HDL Cholesterol 54 mg/dL (40-59); LDL Cholesterol 83 mg/dL (< 100); Potassium 5.1 mmol/L (3.5-5.1); Sodium 141 mmol/L (136-145); Triglycerides 81 mg/dL (< 150)
[2024-12-01 09:40] LABS: Chloride 109 mmol/L (98-107); Glucose 128 mg/dL (74-106)
== END | disposition home or self-care (01) ==
LOC: LAB 08:24
PROVIDERS: ATTEND Specialist
DX: I10 Essential (primary) hypertension (principal); E11.9 Type 2 diabetes mellitus without complications; E03.9 Hypothyroidism, unspecified; E78.5 Hyperlipidemia, unspecified; D64.9 Anemia, unspecified; R68.89 Other general symptoms and signs
CPT/HCPCS: 36415; 80048; 80061; 80076; 83036; 84443; 85025

== ENCOUNTER → 2025-03-16 | Outpatient (CLI) | payer MEDICAID ==
[2025-03-16 08:21] LABS: Basophils # (auto) 0.1 10 ^3/uL (0-0.2); Basophils % (auto) 0.9 % (0.0-2.0); Eosinophils # (auto) 0.4 10 ^3/uL (0-0.8); Eosinophils % (auto) 5.8 % (0.0-7.0); Hematocrit 49.4 % (41.0-53.0); Hemoglobin 16.4 g/dL (13.5-17.5); Lymphocytes # (auto) 1.4 10 ^3/uL (0.4-5.4); Lymphocytes % (auto) 20.5 % (10.0-50.0); Mean Corpuscular Hemoglobin 32.1 pg (28.0-32.0); Mean Corpuscular Hgb Conc. 33.2 g/dL (32.0-36.0); Mean Corpuscular Volume 96.7 fL (80.0-100.0); Monocytes # (auto) 0.6 10 ^3/uL (0-1.3); Monocytes % (auto) 9.3 % (0.0-12.0); Neutrophils # (auto) 4.4 10 ^3/uL (1.6-8.6); Neutrophils % (auto) 63.5 % (37.0-80.0); Nucleated Red Blood Cells % 0.1 %; Platelet Count (auto) 163 10^3/uL (140-450); Red Blood Cells 5.11 10^6/uL (4.5-5.90); Red Cell Distribution Width 15.3 % (11.8-14.3); White Blood Cell 6.9 10^3/uL (4.4-10.8)
[2025-03-16 09:18] LABS: Alanine Aminotransferase 26 U/L (7-40); Albumin 4.4 g/dL (3.2-4.8); Alkaline Phosphatase 66 U/L (46-116); Calcium 9.8 mg/dL (8.7-10.4); Carbon Dioxide 23 mmol/L (20-31)
[2025-03-16 09:19] LABS: Anion Gap 10 (5-15); Aspartate Aminotransferase 20 U/L (13-40); BUN/Creatinine Ratio 14.2 (10.0-20.0); Bilirubin, Total 0.8 mg/dL (0.2-1.0); Blood Urea Nitrogen 15 mg/dL (9-23); Cholesterol 143 mg/dL (< 200); HDL Cholesterol 49 mg/dL (40-59); LDL Cholesterol 81 mg/dL (< 100); Potassium 4.4 mmol/L (3.5-5.1); Sodium 140 mmol/L (136-145); Total Protein 6.9 g/dL (5.7-8.2)
[2025-03-16 09:20] LABS: Chloride 107 mmol/L (98-107); Glucose 141 mg/dL (74-106); Triglycerides 153 mg/dL (< 150)
[2025-03-16 09:32] LABS: Bilirubin, Direct 0.3 mg/dL (<0.3)
== END | disposition home or self-care (01) ==
LOC: LAB 07:53
PROVIDERS: ATTEND Specialist
DX: I10 Essential (primary) hypertension (principal); E11.9 Type 2 diabetes mellitus without complications; E78.5 Hyperlipidemia, unspecified; E03.9 Hypothyroidism, unspecified; D64.9 Anemia, unspecified; R68.89 Other general symptoms and signs
CPT/HCPCS: 36415; 80053; 80061; 82248; 83036; 84443; 85025

== ENCOUNTER 2025-03-23 12:31 | Outpatient (CLI) | payer MEDICAID ==
[2025-03-23 13:18] LABS: Potassium 4.5 mmol/L (3.5-5.1); Sodium 140 mmol/L (136-145)
[2025-03-23 13:20] LABS: Anion Gap 8 (5-15); Carbon Dioxide 25 mmol/L (20-31)
[2025-03-23 13:24] LABS: Chloride 107 mmol/L (98-107)
[2025-03-23 13:25] LABS: BUN/Creatinine Ratio 20.5 (10.0-20.0); Blood Urea Nitrogen 23 mg/dL (9-23); Glucose 124 mg/dL (74-106)
[2025-03-23 13:58] LABS: Creatinine, Urine 103.82 mg/dL (30.0-125.0)
== END 2025-03-23 17:00 | disposition home or self-care (01) ==
LOC: LAB 12:31
PROVIDERS: ATTEND Internal Medicine
DX: E11.9 Type 2 diabetes mellitus without complications (principal)
CPT/HCPCS: 36415; 80048; 82043; 82570

== ENCOUNTER 2025-06-21 08:42 | Outpatient (CLI) | payer MEDICAID ==
[2025-06-21 09:59] LABS: Hematocrit 52.8 % (41.0-53.0); Hemoglobin 17.6 g/dL (13.5-17.5); Mean Corpuscular Hemoglobin 32.7 pg (28.0-32.0); Mean Corpuscular Volume 98.1 fL (80.0-100.0); Nucleated Red Blood Cells % 0.1 %
[2025-06-21 11:07] LABS: Alanine Aminotransferase 26 U/L (7-40); Albumin 4.7 g/dL (3.2-4.8); Alkaline Phosphatase 60 U/L (46-116); Anion Gap 8 (5-15); BUN/Creatinine Ratio 14.4 (10.0-20.0); Bilirubin, Direct 0.2 mg/dL (<0.3); Blood Urea Nitrogen 15 mg/dL (9-23); Calcium 9.4 mg/dL (8.7-10.4); Carbon Dioxide 26 mmol/L (20-31); Cholesterol 140 mg/dL (< 200); HDL Cholesterol 55 mg/dL (40-59); Potassium 4.8 mmol/L (3.5-5.1); Sodium 144 mmol/L (136-145); Total Protein 7.1 g/dL (5.7-8.2); Triglycerides 99 mg/dL (< 150)
[2025-06-21 11:08] LABS: Bilirubin, Total 0.7 mg/dL (0.2-1.0)
[2025-06-21 11:22] LABS: Chloride 110 mmol/L (98-107); Glucose 127 mg/dL (74-106)
== END 2025-06-21 17:00 | disposition home or self-care (01) ==
LOC: LAB 08:42
PROVIDERS: ATTEND Specialist
DX: I11.0 Hypertensive heart disease with heart failure (principal); I50.9 Heart failure, unspecified; E11.9 Type 2 diabetes mellitus without complications; E03.9 Hypothyroidism, unspecified; E78.5 Hyperlipidemia, unspecified; D64.9 Anemia, unspecified; R94.5 Abnormal results of liver function studies; R68.89 Other general symptoms and signs
CPT/HCPCS: 36415; 80053; 80061; 80076; 83036; 84443; 85025

== ENCOUNTER 2025-08-15 11:59 | Outpatient (CLI) | payer MEDICAID ==
[2025-08-15 12:40] LABS: Urine Protein, UAD Negative (Negative)
[2025-08-15 12:54] LABS: Hematocrit 51.9 % (41.0-53.0); Hemoglobin 17.1 g/dL (13.5-17.5); Mean Corpuscular Hemoglobin 32.1 pg (28.0-32.0); Mean Corpuscular Volume 97.6 fL (80.0-100.0); Nucleated Red Blood Cells % 0.1 %
[2025-08-15 13:11] LABS: Alanine Aminotransferase 29 U/L (7-40); Alkaline Phosphatase 62 U/L (46-116); Anion Gap 7 (5-15); BUN/Creatinine Ratio 11.9 (10.0-20.0); Blood Urea Nitrogen 12 mg/dL (9-23); Calcium 9.2 mg/dL (8.7-10.4); Carbon Dioxide 26 mmol/L (20-31); Sodium 144 mmol/L (136-145); Total Protein 7.3 g/dL (5.7-8.2); Triglycerides 107 mg/dL (< 150)
[2025-08-15 13:12] LABS: Albumin 4.3 g/dL (3.2-4.8); Bilirubin, Total 0.7 mg/dL (0.2-1.0); Cholesterol 147 mg/dL (< 200); HDL Cholesterol 54 mg/dL (40-59)
[2025-08-15 13:16] LABS: Chloride 111 mmol/L (98-107); Glucose 117 mg/dL (74-106)
[2025-08-15 13:19] LABS: Potassium 5.6 mmol/L (3.5-5.1)
[2025-08-15 13:28] LABS: Uric Acid 3.8 mg/dL (3.7-9.2)
== END 2025-08-15 17:00 | disposition home or self-care (01) ==
LOC: LAB 11:59
PROVIDERS: ATTEND Internal Medicine
DX: D51.9 Vitamin B12 deficiency anemia, unspecified (principal); R78.4 Finding of other drugs of addictive potential in blood; R68.89 Other general symptoms and signs; R73.09 Other abnormal glucose; R79.89 Other specified abnormal findings of blood chemistry; E61.2 Magnesium deficiency; E55.9 Vitamin D deficiency, unspecified
CPT/HCPCS: 36415; 80053; 80061; 81001; 82607; 82746; 83036; 84443; 84550; 85025; 87086

== ENCOUNTER 2025-09-12 13:19 | Outpatient (CLI) | payer MEDICAID ==
[2025-09-12 14:04] LABS: Hematocrit 52.3 % (41.0-53.0); Hemoglobin 17.5 g/dL (13.5-17.5); Mean Corpuscular Hemoglobin 32.4 pg (28.0-32.0); Mean Corpuscular Volume 96.9 fL (80.0-100.0); Nucleated Red Blood Cells % 0.1 %
[2025-09-12 14:10] LABS: Urine Budding Yeast OCCASIONAL /hpf (None Seen); Urine Protein, UAD TRACE (Negative)
[2025-09-12 14:38] LABS: Alanine Aminotransferase 21 U/L (7-40); Albumin 4.5 g/dL (3.2-4.8); Alkaline Phosphatase 64 U/L (46-116); Anion Gap 11 (5-15); BUN/Creatinine Ratio 17.2 (10.0-20.0); Blood Urea Nitrogen 17 mg/dL (9-23); Calcium 9.7 mg/dL (8.7-10.4); Carbon Dioxide 24 mmol/L (20-31); Cholesterol 159 mg/dL (< 200); Magnesium 2.3 mg/dL (1.6-2.6); Potassium 4.6 mmol/L (3.5-5.1); Sodium 143 mmol/L (136-145); Total Protein 7.7 g/dL (5.7-8.2); Triglycerides 91 mg/dL (< 150)
[2025-09-12 14:39] LABS: Bilirubin, Total 0.9 mg/dL (0.2-1.0); Chloride 108 mmol/L (98-107); Glucose 111 mg/dL (74-106); HDL Cholesterol 55 mg/dL (40-59)
[2025-09-12 15:18] LABS: Uric Acid 4.8 mg/dL (3.7-9.2)
== END 2025-09-12 17:00 | disposition home or self-care (01) ==
LOC: LAB 13:19
PROVIDERS: ATTEND Internal Medicine
DX: E78.49 Other hyperlipidemia (principal); E61.2 Magnesium deficiency; E79.0 Hyperuricemia without signs of inflammatory arthritis and tophaceous disease; E55.9 Vitamin D deficiency, unspecified; D51.9 Vitamin B12 deficiency anemia, unspecified; R82.79 Other abnormal findings on microbiological examination of urine; R82.90 Unspecified abnormal findings in urine; R82.998 Other abnormal findings in urine; R94.6 Abnormal results of thyroid function studies; R68.89 Other general symptoms and signs; R73.09 Other abnormal glucose
CPT/HCPCS: 36415; 80053; 80061; 81001; 82306; 82607; 82746; 83036; 83735; 84443; 84550; 85025; 87086